=== PATIENT | female | born 1945 | race Caucasian/White ===

== ENCOUNTER 2016-10-04 12:03 | Emergency (ER) | payer OTHER, MEDICARE ==
[2016-10-04 12:11] VITALS: TEMP 98.1; O2SAT 91
[2016-10-04] MEDS ORDERED: NS 1,000 ML IV ONE (13:13)
[2016-10-04] MEDS ORDERED: fentaNYL 100 MCG/2 ML INJ IVP ONE (13:13)
--- NOTE | 2016-10-04 14:07 | DX ---
Left hip series 2 views 1344 hours. History: Left-sided hip pain without trauma. Findings: The hip joint spaces are well-maintained. Tiny marginal osteophytes are seen along the femo ral head bilaterally. There are no fractures or abnormal lytic or sclerotic osseous lesions. There is mild sclerosis inferior left SI joint region. The right SI joint is normal in appearance as well as the symphysis. Soft tissues are unremarkable. There are some clips projected left pelvic sidewall. Ph leboliths are noted in the lower pelvis. Impression: 1. No acute osseous abnormality seen about the pelvis with attention left hip. 2. Tiny marginal osteophytes about the femoral head bilaterally. 3. Mild sclerosis inferior left SI joint.
--- NOTE | 2016-10-04 14:52 | EDPHY ---
H & P Time Seen by Provider: 10/04/16 12:55 HPI/ROS: HPI Left hip pain. 71-year-old female by private vehicle with her daughter. This patient has had left hip pain which has been gradually worsening over the last month. She describes this pain is mostly lateral and superior originating over her posterior and superior iliac crest and radiating into the anterior aspect of the groin and left hip area. She reports that it is stiff when she wakes up in the morning and gets better as she walks. She reports that over the last couple of days it has been worse. There is no history of trauma. She was seen in [facility]. They could not obtain imaging studies because she she could not be positioned properly secondary to her pain. ROS: Constitutional: No fever, no chills. No weakness. Eyes: No discharge. No changes in vision. ENT: No sore throat. No nasal congestion or rhinorrhea. Respiratory: No cough. No shortness of breath. Cardiac: No chest pain, no palpitations. Gastrointestinal: No abdominal pain, no vomiting, no diarrhea. Genitourinary: No hematuria. No dysuria or increased frequency with urination. Musculoskeletal: No back pain. As above. Skin: No rashes. Neurological: No headache. No focal weakness or altered sensation. Past medical history: Chronic pain. She currently takes OxyContin. Oral surgery, hypertension. Social history: Here with her daughter. Physical Exam: General Appearance: Alert, she appears uncomfortable. This patient is responding to questions appropriately and in full sentences. This patient appears well-hydrated and well-nourished. Eyes: Pupils small, 1 mm but equal and round and reactive no pallor or injection. No lid edema, erythema or injection. Left hip exam: No pain on axial compression of the left hip. She does not have significant pain with internal and external rotation of the femur. No midline thoracic, lumbar sacral tenderness on palpation. No significant tenderness on palpation over the left sacroiliac joint. No soft tissue changes over these areas. The left lower extremity is neurologically intact in all myotomes in dermatomes. She has strong dorsalis pedis pulses and posterior tibial pulse left foot. Good capillary refill in all digits of left foot. Her hip flexors are tight up through the groin area to the anterior superior iliac spine. Neurological: Motor sensory function is grossly intact. Cranial nerves are normal. Skin: Warm and dry, no rashes. Musculoskeletal: As above. Extremities are symmetrical. All joints range without pain or impingement except noted above. Psychiatric: No agitation. No depression. Database: EKG: Imaging: Left hip x-ray series: Negative for fracture, subluxation, dislocation. Some degenerative changes noted. Interpreted by me. Procedures: Emergency department course: IV was placed in triage. She was given 100 mcg of IV fentanyl. This reduced her pain significantly. She was sent for imaging as above. 2:45 p.m., on re-evaluation she is resting comfortably. Her pain is well controlled. Results of her x-rays were discussed with her and her daughter. She is able to ambulate on the left hip. Left hip examination was repeated as performed on initial physical examination and was unremarkable. I feel that fracture, subluxation, dislocation, septic arthritis are unlikely. She feels comfortable going with her daughter. Her daughter feels comfortable taking her home. I will prescribe a short course Flexeril as a muscle relaxer to be used primarily at night and to help her sleep. I explained that she is not to combine this with her oxycodone. I discussed ibuprofen dosing. Orthopedic follow-up and return to emergency department precautions were discussed with the 2 of them. She was discharged in good condition with her daughter. Differential Diagnosis: The differential diagnosis on this patient includes but is not limited to left hip arthritis, left hip flexor tendinitis. Fracture, subluxation, dislocation of the left hip unlikely. Septic arthritis unlikely. This represents a partial list of diagnoses considered. These considerations are based on history , physical exam, past history, reassessment and diagnostic testing. Smoking Status: Former smoker Constitutional: Initial Vital Signs Temperature (C) 36.7 C 10/04/16 12:04 Heart Rate 98 10/04/16 12:04 Respiratory Rate 14 10/04/16 12:04 Blood Pressure 114/60 10/04/16 12:04 O2 Sat (%) 91 L 10/04/16 12:04 O2 Delivery Mode Room Air Allergies/Adverse Reactions: Penicillins Allergy (Unknown, Verified 08/25/16 18:04) clindamycin Allergy (Verified 08/25/16 18:04) Home Medications: Medication Instructions Recorded Sertraline HCl [Zoloft 50mg (RX)] 50 mg PO DAILY@1300 03/01/13 Aspirin 81mg (*) 08/25/16 Atorvastatin Calcium 08/25/16 Losartan Potassium 08/25/16 Vitamin And Supplements 08/25/16 Cyclobenzaprine [Flexeril 10 MG 10 mg PO TID #9 tab 10/04/16 (*)] Hydrochlorothiazide 10/04/16 MDM/Departure - MDM Medications Given: Discontinued Medications Fentanyl (Sublimaze) 100 mcg IVP EDNOW ONE Stop: 10/04/16 13:14 Last Admin: 10/04/16 13:38 Dose: 100 mcg Sodium Chloride (Ns) 1,000 mls @ 0 mls/hr IV EDNOW ONE PRN Reason: Wide Open Stop: 10/04/16 13:14 Last Admin: 10/04/16 13:38 Dose: 1,000 mls - Depart Disposition: Home, Routine, Self-Care Clinical Impression: Left hip pain Condition: Good Instructions: Hip Pain (ED), Arthritis (ED) Additional Instructions: Read and follow provided instructions. Follow-up with Orthopedics or with her primary care physician for orthopedic referral in 2-3 days for re-evaluation of your left hip. Take medication as prescribed. Do not take with narcotic pain medications. Return to the emergency department for worsening pain, fever, numbness or weakness in your lower extremity, bowel or bladder incontinence or other serious concerns. Prescriptions: Cyclobenzaprine [Flexeril 10 MG (*)] 10 mg PO TID #9 tab Referrals: Peyton Harley MD [Primary Care Provider] - As per Instructions Schuyler Mars MD [Medical Doctor] - As per Instructions
[2016-10-04 15:26] VITALS: BP 143/69; PULSE 88; RESP 16
== END 2016-10-04 15:26 | disposition home or self-care (01) ==
DX: M25.552 Pain in left hip (principal); I10 Essential (primary) hypertension; Z87.891 Personal history of nicotine dependence; Z79.82 Long term (current) use of aspirin
CPT/HCPCS: 73502; 96361; 96374; 99284; J3010

== ENCOUNTER → 2017-12-09 | Outpatient (CLI) | payer OTHER, MEDICARE | LOC: FIMAGING 10:50 | DX: Z12.31 Encounter for screening mammogram for malignant neoplasm of breast (principal); Z13.820 Encounter for screening for osteoporosis; M81.0 Age-related osteoporosis without current pathological fracture; Z78.0 Asymptomatic menopausal state ==